=== PATIENT | male | born 1955 | race Caucasian/White ===

== ENCOUNTER → 2018-01-04 | Outpatient (CLI) | payer BC ==
[~2018-01-04] MED LIST: COLACE100 MG PO; Flexeril PO; Flomax PO; Motrin PO; NORCO 5/3251 TABLET PO; Roxicet,Percocet 5/3 PO; ULTRACET1 TABLET PO
== END | disposition home or self-care (01) ==
LOC: CDC 10:47
DX: Z01.810 Encounter for preprocedural cardiovascular examination (principal); M54.12 Radiculopathy, cervical region; I44.0 Atrioventricular block, first degree; R00.1 Bradycardia, unspecified
CPT/HCPCS: 93000